=== PATIENT | female | born 1960 | race Caucasian/White ===

== ENCOUNTER 2024-01-23 13:46 | Emergency (ER) | payer OTHER ==
[~2024-01-23] VITALS: Ht 165.1 cm; Wt 78.9 kg
[2024-01-23 14:00] VITALS: BP 129/71; PULSE 80; RESP 18; TEMP 97.4; O2SAT 97
[2024-01-23 14:15] VITALS: O2SAT 98
[2024-01-23] MEDS ORDERED: ATA25 PO (14:35)
== END 2024-01-23 14:39 | disposition home or self-care (01) ==
LOC: MED 13:46
DX: F41.9 Anxiety disorder, unspecified (principal); Z79.899 Other long term (current) drug therapy
CPT/HCPCS: 99283